=== PATIENT | female | born 1965 | race Caucasian/White ===

== ENCOUNTER 2018-09-13 13:55 | Emergency (ER) | payer OTHER ==
[~2018-09-13] VITALS: Ht 162.6 cm; Wt 64.4 kg
--- NOTE | 2018-09-13 14:01 | NUR ---
PT AMBULATES TO BED 9
[2018-09-13 14:09] VITALS: BP 159/86
--- NOTE | 2018-09-13 14:16 | NUR ---
53 yo f bib self with c/o pain to the medial aspect of the left breast, with rash, low grade fevers, and mild swelling x 1 wk. Patient with bl breast implants 20 years ago. Patient sts she believes the implants may be having some leakage. pt aaox4, gcs 15, cms intact. rr even and unlabored, lungs bl clear. abd soft, non-tender. er md notified. pt needs met. safety precautions in place, will continue to monitor.
--- NOTE | 2018-09-13 14:30 | NUR ---
Patient being evaluated by physician at bedside.
--- NOTE | 2018-09-13 14:37 | NUR ---
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
[2018-09-13] MEDS ORDERED: ONDANSETRON 4 MG/2 ML VIAL IVP ONE (14:40)
[2018-09-13] MEDS ORDERED: KETOROLAC 30 MG/ML VIAL IVP ONE (14:40)
[2018-09-13] MEDS ORDERED: NACL 0.9% 1,000 ML IV ONE (14:40)
--- NOTE | 2018-09-13 14:55 | NUR ---
PATIENT RESTING AT THIS TIME; NO SIGNS OF DISTRESS.
--- NOTE | 2018-09-13 14:55 | NUR ---
IV STARTED AND BLOOD COLLECTED; SENT TO LAB.
[2018-09-13 15:12] LABS: BASOPHILS % (AUTO) 0.4 % (0.0-2.0); EOSINOPHILS % (AUTO) 0.5 % (0.0-4.0); HEMATOCRIT 42.1 % (36-48); HEMOGLOBIN 14.1 g/dL (12.0-16.0); LYMPHOCYTES # (AUTO) 2.4 K/uL (2.5-16.5); LYMPHOCYTES % (AUTO) 27.5 % (20.5-51.1); MEAN CORPUSCULAR HEMOGLOBIN 32 pg (27-31); MEAN CORPUSCULAR HGB CONC 34 g/dL (33-37); MEAN CORPUSCULAR VOLUME 93.9 fL (80-94); MONOCYTES # (AUTO) 0.5 K/uL (0.8-1.0); MONOCYTES % (AUTO) 5.5 % (1.7-9.3); NEUTROPHILS # (AUTO) 5.7 K/uL (1.8-7.7); NEUTROPHILS % (AUTO) 66.1 % (42.2-75.2); PLATELET COUNT (AUTO) 269 K/uL (140-450); RED BLOOD CELL COUNT(AUTO) 4.48 MIL/uL (4.20-5.40); RED CELL DISTRIBUTION WIDTH 13.6 % (11.6-13.7); WHITE BLOOD COUNT (AUTO) 8.7 K/uL (4.8-10.8)
[2018-09-13 15:20] LABS: ALBUMIN 4.3 g/dL (3.4-5.0); CARBON DIOXIDE 30.6 mmol/L (21-32); CREATININE 0.7 mg/dL (0.6-1.3); POTASSIUM 3.6 mmol/L (3.5-5.1); TOTAL BILIRUBIN 0.2 mg/dL (0.0-1.0)
--- NOTE | 2018-09-13 15:29 | NUR ---
pt resting comfortably in [facility] at this time w/ vss, rr even and unlabored and safety precautions in place. pt needs met, will continue to monitor.
[2018-09-13 15:38] VITALS: BP 138/90
--- NOTE | 2018-09-13 15:39 | NUR ---
Patient discharged with v/s stable. Written and verbal after care instructions given and explained. Patient alert, oriented and verbalized understanding of instructions. Ambulatory with steady gait. All questions addressed prior to discharge. ID band removed. Patient advised to follow up with PMD. Rx of Gabapentin, Tramadol given. Patient educated on indication of medication including possible reaction and side effects. Opportunity to ask questions provided and answered.
== END 2018-09-13 15:39 | disposition home or self-care (01) ==
LOC: MED 13:55
DX: M79.2 Neuralgia and neuritis, unspecified (principal); F17.200 Nicotine dependence, unspecified, uncomplicated
CPT/HCPCS: 36415; 80053; 85025; 96361; 96374; 96375; 99283; J1885; J2405; J7030

== ENCOUNTER 2020-04-07 11:17 | Emergency (ER) | payer OTHER ==
[~2020-04-07] VITALS: Ht 165.1 cm; Wt 60.3 kg
[2020-04-07 11:24] VITALS: BP 157/96
--- NOTE | 2020-04-07 11:30 | NUR ---
54/F C/O GENITAL HERPES OUTBREAK X 2 DAYS. HAS HAD PREVIOUS EPISODES OF GENITAL HERPES. STATES ITCHING AND PAIN. DENIES URINARY/UTI SYMPTOMS. PT APPEARS NAD. PT GIVEN HOSPITAL GOWN. MEDHX: HERPES
--- NOTE | 2020-04-07 11:38 | NUR ---
DR RIVERA EVALUATING PT AT BEDSIDE
[2020-04-07 12:01] VITALS: BP 143/89
--- NOTE | 2020-04-07 12:01 | NUR ---
Patient discharged with v/s stable. Written and verbal after care instructions given and explained. Patient alert, oriented and verbalized understanding of instructions. Ambulatory with steady gait. All questions addressed prior to discharge. ID band removed. Patient advised to follow up with PMD. Rx of Tramadol and Valtrex given. Patient educated on indication of medication including possible reaction and side effects. Opportunity to ask questions provided and answered.
== END 2020-04-07 12:01 | disposition home or self-care (01) ==
LOC: MED 11:17
DX: B00.9 Herpesviral infection, unspecified (principal)
CPT/HCPCS: 99283

== ENCOUNTER 2020-06-11 12:24 | Emergency (ER) | payer OTHER ==
[~2020-06-11] VITALS: Ht 165.1 cm; Wt 60.8 kg
[2020-06-11 12:31] VITALS: BP 142/100
--- NOTE | 2020-06-11 12:36 | NUR ---
54 Y/O F C/C SORE THROAT X 2 MONTHS ON AND OFF. PER PT TAKEN TEA/TYLENOL AND OTC RX WITH NO RELIEF, SWALLOWING EXACERBATES PAIN, 5/10 PAIN. PT PRESENTS IN NO DISTRESS,EUPNIC,VSS. NKA. HX SMOKER. NO RX. NO NVD. SIDE RAIL X1.
[2020-06-11] MEDS ORDERED: DEXAMETHASONE 4 MG/ML VIAL PO ONE (13:10)
--- NOTE | 2020-06-11 13:19 | NUR ---
COVID SWAB OBTAINED TAKEN TO LAB
[2020-06-11 13:24] VITALS: BP 140/94
--- NOTE | 2020-06-11 13:24 | NUR ---
Patient discharged with v/s stable. Written and verbal after care instructions given and explained. Patient verbalized understanding. Ambulatory with steady gait. All questions addressed prior to discharge. Advised to follow up with PMD.
== END 2020-06-11 13:24 | disposition home or self-care (01) ==
LOC: MED 12:24
DX: J02.9 Acute pharyngitis, unspecified (principal); Z20.828 Contact with and (suspected) exposure to other viral communicable diseases; F17.210 Nicotine dependence, cigarettes, uncomplicated; Z71.9 Counseling, unspecified
CPT/HCPCS: 99283; J1100; U0003